=== PATIENT | female | born 1960 | race Caucasian/White ===

== ENCOUNTER 2017-06-16 10:52 | Day surgery (SDC) | payer OTHER ==
[~2017-06-16 10:52] MED LIST: LIDOCAINE HCL 1% MPF SOL ONE; PROPOFOL 500 MG/50 ML EMU IV ONE
[2017-06-16 12:24] VITALS: RESP 20
[2017-06-16 12:42] VITALS: TEMP 98
[2017-06-16 12:43] VITALS: BP 115/77; PULSE 81; O2SAT 100
== END 2017-06-16 12:55 | disposition home or self-care (01) ==
LOC: SURG 10:52
PROVIDERS: ATTEND Surgery
DX: Z12.11 Encounter for screening for malignant neoplasm of colon (principal)
CPT/HCPCS: 45378; J2001; J2704